=== PATIENT | male | born 2000 | race African-American/Black ===

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

== ENCOUNTER 2020-11-28 11:48 | Emergency (ER) | payer SELFPAY | END 2020-11-28 13:29 | disposition left against medical advice (07) | LOC: ERS 11:48 | DX: Z53.21 Procedure and treatment not carried out due to patient leaving prior to being seen by health care provider (principal) | CPT/HCPCS: 71046 ==